=== PATIENT | female | born 1945 | race Caucasian/White ===

== ENCOUNTER 2021-09-20 11:54 | Outpatient (CLI) | payer MEDICARE, SELFPAY ==
[2021-09-20 17:26] LABS: Albumin* 3.3 g/dL (3.3-5.0)
[2021-09-20 17:27] LABS: Chloride* 101 mmol/L (96-114); Potassium* 3.6 mmol/L (3.6-5.1); Sodium* 137 mmol/L (135-149)
[2021-09-20 17:29] LABS: Aspartate Amino Transferase* 42 U/L (12-35); Bilirubin Total* 0.5 mg/dL (0.1-1.5); Carbon Dioxide* 32 mmol/L (20-32); Creatinine* 0.8 mg/dL (0.5-1.5); Estimated Glomerular Filt Rate 76 ml/min
[2021-09-20 17:30] LABS: Alanine Aminotransferase* 17 U/L (4-35); Alkaline Phosphatase* 110 U/L (40-150); Blood Urea Nitrogen* 11 mg/dL (7-30); Calcium* 8.7 mg/dL (8.4-10.6); Cholesterol* 167 mg/dL (90-199); Glucose* 103 mg/dL (60-115); HDL Cholesterol* 93 mg/dL (>=50); LDL Cholesterol Calculated 55 mg/dL (<100); Lipase* 35 U/L (23-300); Total Protein* 6.7 g/dL (6.0-8.3); Triglycerides* 97 mg/dL (40-149)
== END 2021-09-20 11:55 | disposition home or self-care (01) ==
PROVIDERS: PCP Family Medicine; Visit Provider Family Medicine
DX: R63.4 Abnormal weight loss (principal); E13.9 Other specified diabetes mellitus without complications; Z13.6 Encounter for screening for cardiovascular disorders
CPT/HCPCS: 80053; 80061; 83690

== ENCOUNTER 2022-04-07 15:56 | Outpatient (CLI) | payer MEDICARE, SELFPAY ==
[2022-04-07 16:14] LABS: Basophils Absolute Auto 0.03 K/uL (0.00-0.30); Basophils Percent Auto 0.5 % (0.0-3.0); Eosinophils Percent Auto 1.8 % (0.0-7.0); Hematocrit 36.1 % (33.0-51.0); Hemoglobin* 11.9 gm/dL (12.0-16.0); Immature Granulocytes Abs Auto 0.01 K/uL (0.00-0.30); Immature Granulocytes Pct Auto 0.2 %; Lymphocytes Percent Auto 32.3 % (20-44); Mean Corpuscular HGB Conc 33 gm/dL (32-36); Mean Corpuscular Hemoglobin 33 pg (26-34); Mean Corpuscular Volume 99 fL (80-100); Monocytes Percent Auto 11.5 % (0.0-11.0); Neutrophils Absolute Auto 3.02 K/uL (1.7-7.0); Neutrophils Percent Auto 53.7 % (42.0-72.0); Platelet Count* 197 K/uL (140-440); RDW Coefficient of Variation % 13.7 % (11.5-15.5); Red Blood Count 3.64 m/uL (4.00-5.20); White Blood Count* 5.63 K/uL (4.50-11.00)
[2022-04-07 16:15] LABS: Slide Review Reflex No
[2022-04-07 18:41] LABS: Erythrocyte SedimentationRate* 8 mm/hr (2-20)
[2022-04-07 19:11] LABS: Albumin* 3.6 g/dL (3.3-5.0); Chloride* 104 mmol/L (96-114)
[2022-04-07 19:12] LABS: Potassium* 4.1 mmol/L (3.6-5.1); Sodium* 133 mmol/L (135-149)
[2022-04-07 19:14] LABS: Creatinine* 0.8 mg/dL (0.5-1.5); Estimated Glomerular Filt Rate 76 ml/min
[2022-04-07 19:15] LABS: Alanine Aminotransferase* 24 U/L (4-35); Alkaline Phosphatase* 110 U/L (40-150); Aspartate Amino Transferase* 47 U/L (12-35); Bilirubin Total* 0.8 mg/dL (0.1-1.5); Blood Urea Nitrogen* 10 mg/dL (7-30); Calcium* 8.7 mg/dL (8.4-10.6); Carbon Dioxide* 26 mmol/L (20-32); Glucose* 116 mg/dL (60-115); Total Protein* 6.8 g/dL (6.0-8.3)
[2022-04-07 19:21] LABS: C Reactive Protein* < 0.5 mg/dL (0.5-1.0)
== END 2022-04-07 15:57 | disposition home or self-care (01) ==
PROVIDERS: PCP Family Medicine; Visit Provider Family Medicine
DX: R23.2 Flushing (principal)
CPT/HCPCS: 80053; 85025; 85651; 86140

== ENCOUNTER 2022-07-01 15:57 | Outpatient (CLI) | payer MEDICARE, SELFPAY | END 2022-07-01 15:58 | disposition home or self-care (01) | PROVIDERS: PCP Family Medicine; Visit Provider Family Medicine | DX: I10 Essential (primary) hypertension (principal); R00.0 Tachycardia, unspecified | CPT/HCPCS: 84439; 84443 ==

== ENCOUNTER 2022-10-24 15:35 | Outpatient (CLI) | payer MEDICARE, SELFPAY | END 2022-10-24 15:36 | disposition home or self-care (01) | LOC: NFLDREF 15:36 | PROVIDERS: PCP Family Medicine; Visit Provider Family Medicine | DX: Z01.818 Encounter for other preprocedural examination (principal); Z13.9 Encounter for screening, unspecified | CPT/HCPCS: 80048 ==

== ENCOUNTER 2023-06-22 13:56 | Outpatient (CLI) | payer MEDICARE, SELFPAY | END 2023-06-22 13:57 | disposition home or self-care (01) | PROVIDERS: PCP Family Medicine; Visit Provider Family Medicine | DX: D64.9 Anemia, unspecified (principal); R19.7 Diarrhea, unspecified | CPT/HCPCS: 80053; 82607; 84443 ==

== ENCOUNTER 2023-11-04 15:08 | Outpatient (CLI) | payer MEDICARE, SELFPAY | END 2023-11-04 15:09 | disposition home or self-care (01) | PROVIDERS: PCP Family Medicine; Visit Provider Family Medicine | DX: F10.11 Alcohol abuse, in remission (principal) | CPT/HCPCS: 80076; 83690 ==

== ENCOUNTER 2024-05-16 11:49 | Outpatient (CLI) | payer MEDICARE, SELFPAY | END 2024-05-16 11:50 | disposition home or self-care (01) | PROVIDERS: PCP Family Medicine; Visit Provider Family Medicine | DX: R30.0 Dysuria (principal); R63.4 Abnormal weight loss; E13.9 Other specified diabetes mellitus without complications; E53.8 Deficiency of other specified B group vitamins | CPT/HCPCS: 80048; 84439; 84443; 87086 ==